=== PATIENT | female | born 1970 | race Caucasian/White ===

== ENCOUNTER 2016-11-19 13:21 | Emergency (ER) | payer MEDICARE, OTHER ==
[2016-11-19] MEDS ORDERED: LIDOCAINE VISCOUS 2% 15 ML CUP MUCOUS MEM ONE (14:12)
[2016-11-19] MEDS ORDERED: FAMOTIDINE 20 MG/2 ML VIAL IV STA (14:12)
[2016-11-19] MEDS ORDERED: MAG HYDROX/AL HYDROX/SIMETH 30 ML CUP PO ONE (14:15)
[2016-11-19] MEDS ORDERED: SUCRALFATE 1 GM TAB PO STA (14:15)
--- NOTE | 2016-11-19 14:22 | ED ---
Abdominal Pain HPI - General Chief Complaint: Abdominal Pain Stated Complaint: Abd Pain Time Seen by Provider: 11/19/16 13:51 Source: patient Mode of arrival: ambulatory Limitations: physical limitation - History of Present Illness Initial Comments: Patient is a 46-year-old female who presents with a chief complaint of abdominal pain. She states that this has been going on for about 2 weeks. She describes an aching and gnawing pain in her epigastrium that radiates to her chest. Patient admits to waking up in the middle of the night with coughing fits and pain in her chest. Patient states that aggravating factors include eating and drinking. She describes pain comes on about 20 minutes after eating. Alleviating factors include Pepto-Bismol. Timing is intermittent. Patient also complains of some left-sided chest pain with radiation to the shoulder. Patient has no other complaints at this time. MD Complaint: abdominal pain Onset/Timin -: week(s) Location: epigastric Radiation: chest Migration to: no migration Quality: aching, burning, other (gnawing) Consistency: intermittent Improves With: medication Worsens With: eating Associated Symptoms: vomiting, dysuria - Related Data Home Medications Medication Instructions Recorded Confirmed ALPRAZolam [Xanax] 0.5 mg PO DAILY PRN 11/19/16 11/19/16 Fluticasone Propionate [Flovent 2 puff INHALATION RT-DAILY 11/19/16 11/19/16 Hfa 110mcg] Hydrochlorothiazide [Hydrodiuril] 25 mg PO DAILY 11/19/16 11/19/16 Metoprolol Succinate (ER) [Toprol 50 mg PO DAILY 11/19/16 11/19/16 Xl] Previous Rx's Medication Instructions Recorded Albuterol Inhaler [Ventolin Hfa 2 puff INHALATION RT-QID PRN 30 11/11/14 Inhaler] Days Docusate [Colace] 100 mg PO DAILY #30 capsule 11/19/16 Pantoprazole Sodium [Protonix] 40 mg PO DAILY #30 tablet. 11/19/16 Ranitidine HCl [Zantac] 150 mg PO BID #30 tab 11/19/16 Allergies Allergy/AdvReac Type Severity Reaction Status Date / Time ibuprofen [From Motrin] Allergy Abdominal Verified 11/19/16 14:34 Pain sulfamethoxazole Allergy Rash/Hives Verified 11/19/16 14:34 [From Bactrim] trimethoprim [From Bactrim] Allergy Rash/Hives Verified 11/19/16 14:34 Review of Systems ROS Statement: Those systems with pertinent positive or pertinent negative responses have been documented in the HPI. ROS Other: All systems not noted in ROS Statement are negative. Constitutional: Denies: fever, chills Eyes: Denies: vision change ENT: Reports: throat pain Respiratory: Reports: cough. Denies: dyspnea, wheezes Cardiovascular: Reports: chest pain Endocrine: Denies: fatigue Gastrointestinal: Reports: abdominal pain, nausea, vomiting. Denies: diarrhea, constipation Genitourinary: Reports: dysuria Musculoskeletal: Denies: back pain Skin: Denies: rash Neurological: Denies: headache Psychiatric: Reports: as per HPI Hematological/Lymphatic: Reports: as per HPI Past Medical History Past Medical History: Asthma, Deep Vein Thrombosis (DVT), Hypertension Additional Past Medical History / Comment(s): FIBROIDS IN UTERUS, KIDNEY STONES History of Any Multi-Drug Resistant Organisms: None Reported Past Surgical History: Section, Tubal Ligation Additional Past Surgical History / Comment(s): 3 Past Anesthesia/Blood Transfusion Reactions: No Reported Reaction Past Psychological History: Anxiety, Bipolar, Depression, Panic Disorder Smoking Status: Current some day smoker Past Alcohol Use History: Occasional Past Drug Use History: Opiates - Past Family History Father Family Medical History: Liver Disease Additional Family Medical History / Comment(s): Father at age 57 from cirrhosis of the liver with history of alcoholism and bipolar. Mother Additional Family Medical History / Comment(s): Mother is alive at age 60 with history of hypertension and anxiety. Sister(s) Additional Family Medical History / Comment(s): Patient has 4 sisters. One has bipolar. One has history of CVA. She has one brother with hypertension. Patient has 3 daughters and one has asthma and anxiety. General Exam Limitations: no limitations, physical limitation General appearance: alert, in no apparent distress Head exam: Present: atraumatic, normocephalic Eye exam: Present: normal appearance, PERRL ENT exam: Present: normal exam, normal oropharynx, mucous membranes moist Neck exam: Present: normal inspection Respiratory exam: Present: normal lung sounds bilaterally. Absent: respiratory distress, wheezes Cardiovascular Exam: Present: regular rate, normal rhythm GI/Abdominal exam: Present: soft, tenderness (Epigastric). Absent: distended, guarding, rebound Rectal exam: Present: deferred Extremities exam: Present: normal inspection Back exam: Present: normal inspection Neurological exam: Present: alert, oriented X3, normal gait Psychiatric exam: Present: normal affect, normal mood Skin exam: Present: warm, dry, intact Course Vital Signs 11/19/16 11/19/16 13:43 15:36 Temperature 99.1 F 97.3 F L Pulse Rate 100 81 Respiratory 18 16 Rate Blood Pressure 175/99 151/84 O2 Sat by Pulse 98 98 Oximetry Medical Decision Making - Medical Decision Making Patient presents with chief complaint of abdominal pain. History and physical examination are consistent with gastritis versus GERD versus gastric ulcer. We' ll send basic abdominal labs. Patient is also concerned with chest pain that she has been having. Chest pain seems atypical. Patient is hypertensive and has a one pack year smoking history. I believe that this patient is low risk for cardiac etiology of pain. I will evaluate the patient with EKG, troponins. The patient will be given a GI cocktail for symptomatically relief. Patient will likely need GI follow-up in the future. 2:51 PM EKG performed at 2:38 PM shows normal sinus rhythm with a rate of 86 bpm. Intervals appear to be within normal limits. There are no ST segment changes. Essentially an unremarkable 12-lead study. 3:56 PM Lead evaluation of this patient is unremarkable. Lipase is just over the upper limit of normal at 304 however I do not suspect that this is the cause of the patient's discomfort today. Patient states she is feeling better after Maalox, Pepcid, and viscous lidocaine. Patient is agreeable to discharge and follow-up with primary care and gastroenterology. She was given explicit instructions on signs and symptoms that should prompt return visit to the emergency department. - Lab Data Result diagrams: 11/19/16 14:34 11/19/16 14:34 Lab Results 11/19/16 11/19/16 11/19/16 Range/Units 14:34 14:34 14:34 WBC 7.1 (3.8-10.6) k/uL RBC 4.67 (3.80-5.40) m/uL Hgb 13.2 (11.4-16.0) gm/dL Hct 38.9 (34.0-46.0) % MCV 83.3 (80.0-100.0) fL MCH 28.4 (25.0-35.0) pg MCHC 34.0 (31.0-37.0) g/dL RDW 14.8 (11.5-15.5) % Plt Count 345 (150-450) k/uL Neutrophils % 59 % Lymphocytes % 28 % Monocytes % 6 % Eosinophils % 5 % Basophils % 1 % Neutrophils # 4.2 (1.3-7.7) k/uL Lymphocytes # 2.0 (1.0-4.8) k/uL Monocytes # 0.4 (0-1.0) k/uL Eosinophils # 0.4 (0-0.7) k/uL Basophils # 0.0 (0-0.2) k/uL Sodium 141 (137-145) mmol/L Potassium 3.6 (3.5-5.1) mmol/L Chloride 107 (98-107) mmol/L Carbon Dioxide 24 (22-30) mmol/L Anion Gap 10 mmol/L BUN 7 (7-17) mg/dL Creatinine 0.56 (0.52-1.04) mg/dL Est GFR (MDRD) Af Amer >60 (>60 ml/min/1.73 sqM) Est GFR (MDRD) Non-Af >60 (>60 ml/min/1.73 sqM) Glucose 88 (74-99) mg/dL Calcium 9.2 (8.4-10.2) mg/dL Total Bilirubin 0.3 (0.2-1.3) mg/dL AST 32 (14-36) U/L ALT 50 (9-52) U/L Alkaline Phosphatase 66 (38-126) U/L Troponin I <0.012 (0.000-0.034) ng/mL Total Protein 6.8 (6.3-8.2) g/dL Albumin 4.1 (3.5-5.0) g/dL Lipase 304 H (23-300) U/L Urine Color Urine Appearance (Clear) Urine pH (5.0-8.0) Ur Specific [place] (1.001-1.035) Urine Protein (Negative) Urine Glucose (UA) (Negative) Urine Ketones (Negative) Urine Blood (Negative) Urine Nitrite (Negative) Urine Bilirubin (Negative) Urine Urobilinogen (<2.0) mg/dL Ur Leukocyte Esterase (Negative) 11/19/16 Range/Units 14:34 WBC (3.8-10.6) k/uL RBC (3.80-5.40) m/uL Hgb (11.4-16.0) gm/dL Hct (34.0-46.0) % MCV (80.0-100.0) fL MCH (25.0-35.0) pg MCHC (31.0-37.0) g/dL RDW (11.5-15.5) % Plt Count (150-450) k/uL Neutrophils % % Lymphocytes % % Monocytes % % Eosinophils % % Basophils % % Neutrophils # (1.3-7.7) k/uL Lymphocytes # (1.0-4.8) k/uL Monocytes # (0-1.0) k/uL Eosinophils # (0-0.7) k/uL Basophils # (0-0.2) k/uL Sodium (137-145) mmol/L Potassium (3.5-5.1) mmol/L Chloride (98-107) mmol/L Carbon Dioxide (22-30) mmol/L Anion Gap mmol/L BUN (7-17) mg/dL Creatinine (0.52-1.04) mg/dL Est GFR (MDRD) Af Amer (>60 ml/min/1.73 sqM) Est GFR (MDRD) Non-Af (>60 ml/min/1.73 sqM) Glucose (74-99) mg/dL Calcium (8.4-10.2) mg/dL Total Bilirubin (0.2-1.3) mg/dL AST (14-36) U/L ALT (9-52) U/L Alkaline Phosphatase (38-126) U/L Troponin I (0.000-0.034) ng/mL Total Protein (6.3-8.2) g/dL Albumin (3.5-5.0) g/dL Lipase (23-300) U/L Urine Color Colorless Urine Appearance Clear (Clear) Urine pH 7.0 (5.0-8.0) Ur Specific [place] 1.001 (1.001-1.035) Urine Protein Negative (Negative) Urine Glucose (UA) Negative (Negative) Urine Ketones Negative (Negative) Urine Blood Negative (Negative) Urine Nitrite Negative (Negative) Urine Bilirubin Negative (Negative) Urine Urobilinogen <2.0 (<2.0) mg/dL Ur Leukocyte Esterase Negative (Negative) Disposition Clinical Impression: Abdominal pain, epigastric Disposition: HOME SELF-CARE Condition: Good Instructions: Gastritis (ED), Gastroesophageal Reflux Disease (ED) Referrals: Rosemarie Hammer MD [Primary Care Provider] - 1-2 days
[2016-11-19 14:45] LABS: Appearance,Urine Clear (Clear); Bilirubin,Urine Negative (Negative); Glucose,Urine (UA) Negative (Negative); Ketones,Urine Negative (Negative); Leukocyte Esterase,Urine Negative (Negative); Nitrite,Urine Negative (Negative); Protein,Urine Negative (Negative); Specific Gravity,Urine 1.001 (1.001-1.035); UA Billing (MACRO vs. MICRO) CHEM; Urobilinogen,Urine <2.0 mg/dL (<2.0)
[2016-11-19 14:48] LABS: Basophils % (A) 1 %; CH 28.1; CHCM 33.9; Eosinophils # (A) 0.4 k/uL (0-0.7); Eosinophils % (A) 5 %; HCT 38.9 % (34.0-46.0); HDW 2.86; HGB 13.2 gm/dL (11.4-16.0); Luc # (Auto) 0.15; Luc % (Auto) 2; Lymphocytes % (A) 28 %; MCH 28.4 pg (25.0-35.0); MCV 83.3 fL (80.0-100.0); Mean Platelet Volume 6.4; Monocytes # (A) 0.4 k/uL (0-1.0); Monocytes % (A) 6 %; Neutrophils # (A) 4.2 k/uL (1.3-7.7); Neutrophils % (A) 59 %; RBC 4.67 m/uL (3.80-5.40); RDW 14.8 % (11.5-15.5); WBC 7.1 k/uL (3.8-10.6); WBC (Perox) 7.26
[2016-11-19 14:54] LABS: ALT 50 U/L (9-52); AST 32 U/L (14-36); Alkaline Phosphatase 66 U/L (38-126); Anion Gap 10 mmol/L; Blood Urea Nitrogen 7 mg/dL (7-17); Calcium 9.2 mg/dL (8.4-10.2); Carbon Dioxide 24 mmol/L (22-30); Chloride 107 mmol/L (98-107); Glucose 88 mg/dL (74-99); Non-African American GFR(MDRD) >60 (>60 ml/min/1.73 sqM); Potassium 3.6 mmol/L (3.5-5.1); Sodium 141 mmol/L (137-145); Total Bilirubin 0.3 mg/dL (0.2-1.3); Total Protein 6.8 g/dL (6.3-8.2)
--- NOTE | 2016-11-19 15:01 | XR ---
EXAMINATION TYPE: XR chest 2V DATE OF EXAM: 11/19/2016 COMPARISON: NONE HISTORY: Pain TECHNIQUE: Frontal and lateral views of the chest are obtained. FINDINGS: There is no focal air space opacity, pleural effusion, or pneumothorax seen. The cardiac silhouette size is within normal limits. The patient is rotated. There is eventration of the right he midiaphragm. Increased AP diameter of the chest could be indicative of underlying COPD. The osseous s tructures are intact. IMPRESSION: No acute cardiopulmonary process.
[2016-11-19 15:37] VITALS: BP 151/84; PULSE 81; RESP 16; TEMP 97.3
== END 2016-11-19 16:12 | disposition home or self-care (01) ==
LOC: EC 13:21
DX: R10.13 Epigastric pain (principal); R11.10 Vomiting, unspecified; J45.909 Unspecified asthma, uncomplicated; I10 Essential (primary) hypertension; F17.200 Nicotine dependence, unspecified, uncomplicated; Z87.442 Personal history of urinary calculi; Z88.6 Allergy status to analgesic agent; Z88.2 Allergy status to sulfonamides; Z79.51 Long term (current) use of inhaled steroids; Z79.899 Other long term (current) drug therapy
CPT/HCPCS: 36415; 71020; 80053; 81003; 83690; 84484; 85025; 93005; 96374; 99284